=== PATIENT | female | born 2000 | race Caucasian/White ===

== ENCOUNTER → 2022-04-11 | Outpatient (CLI) ==
[~2022-04-11] MED LIST: ACET-683 PO; CVS10CAP7 PO; GNPTAB36 PO; HYDR-3713 PO; IBUP200C25 PO; MILI1TAB PO; VITMTA PO
== END ==
LOC: M LABSMTC 09:12
PROVIDERS: ATTEND Anesthesiology
DX: Z01.818 Encounter for other preprocedural examination (principal); Z11.52 Encounter for screening for COVID-19

== ENCOUNTER 2022-04-16 14:08 | Day surgery (SDC) | payer OTHER ==
[~2022-04-16] VITALS: Ht 160 cm; Wt 64.9 kg
[~2022-04-16 14:08] MED LIST changes: +AMPICILLIN SOD/SULBACTAM SOD 3 GM in D5W MINI-BAG PLUS 100 ML IV ONE; +dexameTHASONE 4 MG/ML 1ML VIAL (J1100 PER 1MG) IV ONE
[2022-04-16] MEDS ORDERED: LR 1,000 ML IV SCH ×2 (14:40→17:15)
[2022-04-16] MEDS ORDERED: LIDOCAINE 2% W/ EPINEPHRINE 1.7 ML DENTAL INJ As Ordered ONE (15:34)
[2022-04-16] MEDS ORDERED: MIDAZOLAM INJ 2MG/2ML VIAL (J2250 PER 1MG) As Ordered ONE (15:43)
[2022-04-16] MEDS ORDERED: LIDOCAINE 2% 100MG/5ML SDV (FOR ANES.) As Ordered ONE (15:43)
[2022-04-16] MEDS ORDERED: ROCURONIUM BROMIDE 50 MG/5 ML VIAL As Ordered ONE (15:43)
[2022-04-16] MEDS ORDERED: fentaNYL 100 MCG/2 ML INJECTION As Ordered ONE ×2 (15:43→17:09)
[2022-04-16] MEDS ORDERED: dexameTHASONE 4 MG/ML 1ML VIAL (J1100 PER 1MG) As Ordered ONE ×2 (15:44→17:14)
[2022-04-16] MEDS ORDERED: PHENYLephrine 500MCG 5ML (100MCG/ML) SYRINGE As Ordered ONE (16:34)
[2022-04-16] MEDS ORDERED: SUGAMMADEX SODIUM 500 MG/5 ML VIAL (BRIDION) As Ordered ONE (16:36)
[2022-04-16] MEDS ORDERED: KETOROLAC 60MG 2ML VIAL As Ordered ONE (16:37)
[2022-04-16] MEDS ORDERED: propofoL 200 MG/20 ML VIAL As Ordered ONE ×2 (16:39→17:09)
[2022-04-16] MEDS ORDERED: ONDANSETRON 4MG/2ML VIAL As Ordered ONE (16:46)
[2022-04-16] MEDS ORDERED: fentaNYL 100 MCG/2 ML INJECTION IV PRN (17:15)
[2022-04-16] MEDS ORDERED: ONDANSETRON 4MG/2ML VIAL IV PRN (17:15)
[2022-04-16] MEDS: oxyCODONE 5MG TAB PO PRN ×2 (17:33→18:20)
[2022-04-16] MEDS: MORPHINE 2 MG/ML 1ML VIAL IV PRN ×2 (17:34→17:39)
[2022-04-16 18:30] VITALS: BP 126/80
== END 2022-04-16 18:41 | disposition home or self-care (01) ==
LOC: M SDC 14:08
PROVIDERS: ATTEND Dentist
DX: K02.9 Dental caries, unspecified (principal); F40.232 Fear of other medical care
CPT/HCPCS: 81025; 88300; D7210; D9223; J0295; J1100; J1885; J2250; J2270; J2370; J2405; J3010